=== PATIENT | female | born 1940 | race Two or more races ===

== ENCOUNTER 2019-02-04 15:41 | Inpatient (IN) | payer OTHER, BC ==
[~2019-02-04] VITALS: Ht 157.5 cm; Wt 66.2 kg
[2019-02-04] MEDS ORDERED: URSO FORTE500 MG PO (16:11)
[2019-02-04] MEDS ORDERED: NOVOLIN 70100 UNIT/1 SUBCUTANEO (16:12)
--- NOTE | 2019-02-04 16:12 | NUR ---
PACIENTE ALERTA Y ORIENTADA EN CATHY CHARITO ESFERAS, REFIERE MOLESTAR AL ORINAR Y DOLOR EN ESPALDA MEDIA DESDE HACE APROX UN MES. PACIENTE PRESENTA REFERIDO MEDICO DONDE SE EXPLICA QUE LA PACIENTE PRESENTA UTI CON UN CULTIVO DE ORINA POSTIVO A E COLI.
--- NOTE | 2019-02-04 17:14 | NUR ---
PTE ES EVALUADA POR DR. ESPINOZA QUIEN ORDENA TRATAMIENTO MEDICO. SE EDUCA A PTE SOBRE COLECTA DE HOLDEN Y CT ABDOMINOPELVICO Y REFIERE COMPRENDER. SE SPIKE ENVASE PARA COLECTA DE ORINA.
--- NOTE | 2019-02-04 19:28 | NUR ---
PTE ES CONSULTADA CON DR. JAMES FRANKLIN
[2019-02-12] MEDS ORDERED: ZITHROMAX500 MG PO (09:26)
[2019-02-12] MEDS ORDERED: TUSSIN DM SYRU118 ML PO (09:26)
== END 2019-02-12 13:02 | disposition home or self-care (01) | DRG 433 ==
LOC: ER 15:41 → SEC-K 21:12 → MEDI 21:12 → MEDJ 02-07 10:46
PROVIDERS: ADMIT Internal Medicine
PROC: 0T9B70Z Drainage of Bladder with Drainage Device, Via Natural or Artificial Opening (ICD-10-PCS; principal; 2019-02-04)
PROC: 8E0ZXY6 Isolation (ICD-10-PCS; 2019-02-05)
PROC: BW21ZZZ Computerized Tomography (CT Scan) of Abdomen and Pelvis (ICD-10-PCS; 2019-02-05)
PROC: BW40ZZZ Ultrasonography of Abdomen (ICD-10-PCS; 2019-02-05)
DX: K74.3 Primary biliary cirrhosis (principal); N39.0 Urinary tract infection, site not specified; R31.29 Other microscopic hematuria; E11.22 Type 2 diabetes mellitus with diabetic chronic kidney disease; I12.9 Hypertensive chronic kidney disease with stage 1 through stage 4 chronic kidney disease, or unspecified chronic kidney disease; N28.1 Cyst of kidney, acquired; N18.2 Chronic kidney disease, stage 2 (mild); K57.30 Diverticulosis of large intestine without perforation or abscess without bleeding; Z79.4 Long term (current) use of insulin; Z16.12 Extended spectrum beta lactamase (ESBL) resistance